=== PATIENT | male | born 1945 | race Caucasian/White ===

== ENCOUNTER 2018-02-16 09:01 | Emergency (ER) | payer OTHER ==
--- NOTE | 2018-02-16 09:51 | EDPHY ---
H & P Stated Complaint: visual disturbance last night, increased SOB [id number], malaise and fatigue Time Seen by Provider: 02/16/18 09:05 HPI/ROS: Chief Complaint: Episode of vision loss, history of atrial fibrillation HPI: 72-year-old male with a history of atrial fibrillation had an episode 12 hr ago where he lost vision in both eyes. He is describing up seeing a pattern of wrecked angles as if he were sitting inside and it glue. He was not able to see any other images during the event. They are described as light wrecked angles. Started on the periphery of his vision removed in words and then resolved after about 15-20 seconds. Over the course the next couple of hours he did see a little bit of vision in the periphery of his vision but other than that his vision has returned to normal. He has not had similar episodes in the past. He says that since waking up this morning he has been completely normal. He does have a history of atrial fibrillation but has taken himself off of the Eliquis. He has not had any for the last week or so. He did take 1 dose at 10:00 a.m. Last night and again took it at 6:00 a.m. This morning. No chest pain or shortness of breath. No lightheadedness or fainting. No nausea or vomiting. No headache. No numbness or weakness. No difficulty walking. ROS: 10 systems were reviewed and were negative except those elements noted in the HPI. PMH: Atrial fibrillation, chronic back pain Social History: No smoking, occasional alcohol, no recreational drug use Family History: non-contributory Physical Exam: Gen: Awake, Alert, No Distress HEENT: Nose: no rhinorrhea Eyes: PERRLA, EOMI Mouth: Moist mucosa Neck: Supple, no JVD Chest: nontender, lungs clear to auscultation Heart: Irregularly irregular, normal rate, no murmur Abd: Soft, non-tender, no guarding Back: no CVA tenderness, no midline tenderness Ext: no edema, non-tender Skin: no rash Neuro: CN II-XII intact, Sensation grossly intact, Strength 5/5 in bilateral upper and lower extremities - Medical/Surgical History Hx Asthma: No Hx Chronic Respiratory Disease: No Hx Diabetes: No Hx Cardiac Disease: Yes Hx Renal Disease: No Hx Cirrhosis: No Hx Alcoholism: No Hx HIV/AIDS: No Hx Splenectomy or Spleen Trauma: No Other PMH: HTN, LEFT HIP AND B KNEE REPLACEMENTS, HERNIA REPAIR, afib, psoriasis , - Social History Smoking Status: Former smoker Constitutional: Initial Vital Signs Temperature (C) 36.5 C 02/16/18 09:09 Heart Rate 99 02/16/18 09:09 Respiratory Rate 18 02/16/18 09:09 Blood Pressure 183/92 H 02/16/18 09:09 O2 Sat (%) 95 02/16/18 09:09 O2 Delivery Mode Room Air Allergies/Adverse Reactions: Penicillins Allergy (Verified 02/16/18 09:09) RASH, HIVES ON NECK AND FACE wheat Allergy (Verified 02/16/18 09:09) Rash Home Medications: Medication Instructions Recorded Acetaminophen/ASA/Caffeine 1 - 2 tab PO DAILY PRN 10/19/14 [Excedrin Tablet (*)] Ascorbic Acid [Vitamin C 500 mg 1,000 mg PO DAILY 10/19/14 (*)] Cholecalciferol (Vitamin D3) 10,000 unit PO Q2D 10/19/14 [Vitamin D3] Herbals/Supplements -Info Only 1 ea PO DAILY 10/19/14 Lisinopril/Hydrochlorothiazide 1 tab PO DAILY 10/19/14 [Zestoretic 20-25 mg Tablet] Methocarbamol [Robaxin 500 mg (*)] 500 mg PO BID PRN 10/19/14 Niacin [Niacin 500 mg (*)] 500 mg PO HS 10/19/14 Pyridoxine HCl (Vitamin B6) 50 mg PO DAILY 10/19/14 [Vitamin B-6] Acetaminophen [Tylenol 325mg (*)] 325 - 650 mg PO Q6 PRN #0 tab 11/02/14 Aspirin EC [Aspirin EC 325 mg (*)] 325 mg PO DAILY #0 tab 11/02/14 Docusate Sodium [Colace 100 MG (*)] 100 mg PO BID #0 cap 11/02/14 HYDROcodone/APAP 10/325 [Ephraim 1 - 2 tab PO Q6 PRN #0 tab 11/02/14 10/325 (*)] celeCOXIB [Celebrex (*)] 200 mg PO DAILY #0 cap 11/02/14 Medical Decision Making ED Course/Re-evaluation: I have discussed the patient with Dr. Geovanny Heard, neurology. He is recommending CT angiogram of the head neck now. CT angiogram results noted. I have discussed with Dr. Calvillo. He is recommending referral to Dr. Hector Hansen to schedule a carotid endarterectomy. I will discuss the patient with Dr. Esposito. I have discussed with Cardiology. They will arrange for an outpatient appointment. They are not requesting any changes in his care at this time. They do encourage continuing taking Eliquis as prescribed. - Data Points Laboratory Results: 02/16/18 09:37 POC Sodium 145 mEq/L mEq/L (135-145) POC Potassium 3.5 mEq/L mEq/L (3.3-5.0) POC Chloride 100.0 mEq/L mEq/L (97-110) POC Total CO2 27 mEq/L mEq/L (22-31) POC BUN 22 mg/dL mg/dL (7-23) POC Creatinine 0.9 mg/dL mg/dL (0.7-1.3) POC Glucose 153 mg/dL H mg/dL (70-100) POC Calcium 9.9 mg/dL mg/dL (8.5-10.4) Point of Care Test Results: Chemistry 02/16/18 09:37 POC Sodium 145 mEq/L mEq/L (135-145) POC Potassium 3.5 mEq/L mEq/L (3.3-5.0) POC Chloride 100.0 mEq/L mEq/L (97-110) POC Total CO2 27 mEq/L mEq/L (22-31) POC BUN 22 mg/dL mg/dL (7-23) POC Creatinine 0.9 mg/dL mg/dL (0.7-1.3) POC Glucose 153 mg/dL H mg/dL (70-100) POC Calcium 9.9 mg/dL mg/dL (8.5-10.4) Departure - Departure Disposition: Home, Routine, Self-Care Clinical Impression: Atrial fibrillation, Carotid stenosis Condition: Good Instructions: Carotid Artery Disease (DC), A-fib (Atrial Fibrillation) (ED) Additional Instructions: Please do not stop taking her Eliquis. Follow up with Dr. Hansen, general surgery for consultation for your carotid artery disease. Dr. Epsosito is office will call you to arrange an appointment with him. Return to the emergency department for worsening vision changes, numbness, weakness, fainting, chest pain, shortness of breath, or any other concerns. Referrals: Jana Heard DO [Primary Care Provider] - As per Instructions Ori Hansen MD [Medical Doctor] - As per Instructions Sai Esposito MD [Medical Doctor] - As per Instructions
[2018-02-16] MEDS ORDERED: IOPAMIDOL (ISOVUE 370) 100 ML BTL IV ONE (09:55)
[2018-02-16 11:19] VITALS: BP 162/100
--- NOTE | 2018-02-16 11:36 | CPEKG ---
Test Reason : OPEN Blood Pressure : / mmHG Vent. Rate : 091 BPM Atrial Rate : 116 BPM P-R Int : 161 ms QRS Dur : 123 ms QT Int : 426 ms P-R-T Axes : 000 005 -03 degrees QTc Int : 525 ms Atrial fibrillation Right bundle branch block Confirmed by Geovanny Leonardo ([id number]) on 02/16/2018 11:35:54 AM Referred By: Confirmed By:Geovanny Leonardo
== END 2018-02-16 11:15 | disposition home or self-care (01) ==
LOC: CED 09:01
DX: H54.7 Unspecified visual loss (principal); I48.91 Unspecified atrial fibrillation; I65.29 Occlusion and stenosis of unspecified carotid artery
CPT/HCPCS: 70450-PO; 70496-PO; 70498-PO; 80048-PO; Q9967

== ENCOUNTER 2018-03-04 06:32 | Inpatient (IN) | payer OTHER ==
[2018-03-04] MEDS ORDERED: VANCOMYCIN PHARMACY TO DOSE MISC ONE (06:43)
[2018-03-04] MEDS ORDERED: LR 1,000 ML IV ONE (06:50)
[2018-03-04] MEDS ORDERED: VANCOMYCIN 1.5 GM in NS 250 ML IV ONE (07:00)
[2018-03-04] MEDS ORDERED: THROMBIN (BOVINE) 20,000 UNIT SPRAY TP ONE ×2 (07:44→08:11)
[2018-03-04] MEDS ORDERED: PROTAMINE SULFATE 50 MG/5 ML VIAL IVP ONE (07:44)
[2018-03-04] MEDS ORDERED: BUPIVACAINE 0.5% 30 ML SDV ONE (07:44)
[2018-03-04 07:52] LABS: PLATELET COUNT 168 10^3/uL (150-400)
[2018-03-04] MEDS ORDERED: MIDAZOLAM 2 MG/2 ML VIAL IVP ONE (08:01)
--- NOTE | 2018-03-04 08:01 | PDANEPAE ---
ANE History of Present Illness recent h/o TIAs and found to have carotid disease ANE Past Medical History - Cardiovascular History Hx Hypertension: Yes Hx Arrhythmias: Yes Hx Chest Pain: No Hx Coronary Artery / Peripheral Vascular Disease: No Hx CHF / Valvular Disease: No Hx Palpitations: Yes Cardiovascular History Comment: + Atrial Fibrillation - Pulmonary History Hx COPD: No Hx Asthma/Reactive Airway Disease: No Hx Recent Upper Respiratory Infection: No Hx Oxygen in Use at Home: No Hx Sleep Apnea: Yes - Neurologic History Hx Cerebrovascular Accident: No Hx Seizures: No Hx Dementia: No - Endocrine History Hx Diabetes: No Hypothyroid: No Hyperthyroid: No Obesity: moderate - Renal History Hx Renal Disorders: No - Liver History Hx Hepatic Disorders: No - Neurological & Psychiatric Hx Hx Neurological and Psychiatric Disorders: No - Cancer History Hx Cancer: No - Congenital Disorder History Hx Congenital Disorders: No - GI History GERD: no Hx Gastrointestinal Disorders: No - Other Health History Other Health History: NEG - Chronic Pain History Chronic Pain: Yes (R HIP & BACK) - Surgical History Prior Surgeries: KNEES LALITO REPLACED. L HIP REPLACED. HERNIORRHAPHY ANE Review of Systems Review of systems is: negative Review of Systems: - Exercise capacity Exercise capacity: >=4 METS METS (RN): 3 METS ANE Patient History - Allergies Allergies/Adverse Reactions: Penicillins Allergy (Verified 02/16/18 09:09) RASH, HIVES ON NECK AND FACE wheat Allergy (Verified 02/16/18 09:09) Rash - Home Medications Home medications: home medication list seen and reviewed Home Medications: Acetaminophen/ASA/Caffeine [Excedrin Tablet (*)] 1 - 2 tab PO DAILY PRN [Last Taken 02/28/18] Ascorbic Acid [Vitamin C 500 mg (*)] 1,000 mg PO DAILY 10/19/14 [Last Taken ] Cholecalciferol (Vitamin D3) [Vitamin D3] 10,000 unit PO Q2D 10/19/14 [Last Taken 03/03/18] Herbals/Supplements -Info Only 1 ea PO DAILY 10/19/14 [Last Taken 03/03/18] Lisinopril/Hydrochlorothiazide [Zestoretic 20-25 mg Tablet] 1 tab PO DAILY 10/19 [Last Taken 03/03/18] Methocarbamol [Robaxin 500 mg (*)] 500 mg PO BID PRN 10/19/14 [Last Taken 3 Months Ago ~12/03/17] Niacin [Niacin 500 mg (*)] 500 mg PO HS 10/19/14 [Last Taken 2 Months Ago ~01/02] Pyridoxine HCl (Vitamin B6) [Vitamin B-6] 50 mg PO DAILY 10/19/14 [Last Taken 1 Day Ago ~03/03/18] Apixaban [Eliquis] 5 mg 03/04/18 [Last Taken 03/02/18] - NPO status NPO Status: no food or drink >8 hours NPO Since - Liquids (Date): 03/03/18 NPO Since - Liquids (Time): 22:30 NPO Since - Solids (Date): 03/03/18 NPO Since - Solids (Time): 21:00 - Anes Hx Anes Hx: no prior problems - Smoking Hx Smoking Status: Former smoker - Family Anes Hx Family Anes Hx: none Family Hx Anesthesia Complications: NEG ANE Labs/Vital Signs - Labs Result Diagrams: 03/04/18 07:28 - Vital Signs Vital Signs: reviewed preoperatively; see RN documention for details Blood Pressure: 160/97 Heart Rate: 84 Respiratory Rate: 14 O2 Sat (%): 93 Height: 175.26 cm Weight: 95.254 kg ANE Physical Exam - Airway Neck exam: FROM Mallampati Score: Class 3 Mouth exam: small mouth opening, cabral - Pulmonary Pulmonary: no respiratory distress - Cardiovascular Cardiovascular: irregularly irregular - ASA Status ASA Status: III ANE Anesthesia Plan Anesthesia Plan: general endotracheal anesthesia Lines/Monitors: arterial line
[2018-03-04] MEDS ORDERED: PROPOFOL 200 MG/20 ML VIAL ONE ×2 (08:05→09:36)
[2018-03-04] MEDS ORDERED: fentaNYL 250 MCG/5 ML INJ ONE (08:05)
[2018-03-04] MEDS ORDERED: ROCURONIUM 50 MG/5 ML VIAL ONE (08:05)
--- NOTE | 2018-03-04 08:05 | PDHPUP ---
History & Physical Update H&P update statement: This history and physical update is based on an assessment of the patient which was completed after admission or registration (within 24 hours), but prior to the surgery/procedure. H&P update: H&P reviewed & patient examined, no change in patient's condition since H&P completed
[2018-03-04] MEDS ORDERED: ONDANSETRON 4 MG/2 ML VIAL ONE (08:06)
[2018-03-04] MEDS ORDERED: LIDOCAINE 2% 5 ML SDV ONE (08:06)
[2018-03-04] MEDS ORDERED: DEXAMETHASONE 4 MG/ML VIAL ONE ×2 (08:06)
[2018-03-04] MEDS ORDERED: NALOXONE HCL 0.4 MG/ML INJ IVP PRN (09:10)
[2018-03-04] MEDS ORDERED: ALBUTEROL 3 ML DEYVIAL IH PRN (09:10)
[2018-03-04] MEDS ORDERED: fentaNYL 100 MCG/2 ML INJ IVP PRN (09:10)
[2018-03-04] MEDS ORDERED: ACETAMINOPHEN 500 MG TAB PO PRN (09:10)
[2018-03-04] MEDS ORDERED: HYDROmorphONE/DILAUDID 2 MG/ML INJ IVP PRN (09:10)
[2018-03-04] MEDS ORDERED: LR 500 ML IV PRN (09:10)
[2018-03-04] MEDS ORDERED: PROMETHAZINE HCL 25 MG/ML INJ IVP PRN (09:10)
[2018-03-04] MEDS ORDERED: METOCLOPRAMIDE 10 MG/2 ML VIAL IVP PRN (09:10)
[2018-03-04] MEDS ORDERED: oxyCODONE IR 5 MG TAB PO PRN (09:10)
[2018-03-04] MEDS ORDERED: MEPERIDINE 25 MG/0.5 ML AMP IVP PRN (09:10)
[2018-03-04] MEDS ORDERED: PHENYLEPHRINE HCL 100 MCG/ML SYR IVP PRN (09:10)
[2018-03-04] MEDS ORDERED: LABETALOL HCL 5 MG/ML 20 ML MDV IVP PRN (09:10)
[2018-03-04] MEDS ORDERED: DIAZEPAM 5 MG/ML 1 ML SYR IVP PRN (09:10)
[2018-03-04] MEDS ORDERED: PHENYLEPHRINE HCL 100 MCG/ML SYR ONE ×2 (09:36→10:06)
[2018-03-04] MEDS ORDERED: ePHEDrine SULFATE 25 MG/5 ML SYR ONE (09:41)
[2018-03-04] MEDS ORDERED: NEOSTIGMINE METHYLSULFATE 5 MG/5 ML SYR ONE (10:06)
[2018-03-04] MEDS ORDERED: GLYCOPYRROLATE 0.2 MG/1 ML VIAL ONE ×2 (10:06)
[2018-03-04] MEDS ORDERED: HEPARIN 10,000 UNIT/10 ML MDV (1,000 UNIT/ML) ONE (10:09)
--- NOTE | 2018-03-04 10:32 | POSTOPPROG ---
Post Op Note Date of Operation: 03/04/18 Surgeon: Ori Hansen Photography Spotter: Cassie Anesthesiologist: Paxton Anesthesia: GET(General Endotracheal) Pre-op Diagnosis: Left carotid stenosis Post-op Diagnosis: same Indication: same Procedure: L CEA with EEG monitoring Findings: Poor backflow, L sided EEG changes, neuro exam intact upon waking up Inf/Abcess present in the surg proc area at time of surgery?: No Depth: Deep Incisional (Fascial) EBL: 50-100 Specimen(s): Left carotid plaque Left carotid LN
[2018-03-04] MEDS ORDERED: HYDROmorphONE/DILAUDID 1 MG/ML INJ IVP PRN (10:33)
[2018-03-04] MEDS ORDERED: ONDANSETRON DISINTEGRATING 4 MG TAB PO PRN (10:36)
[2018-03-04] MEDS: ACETAMINOPHEN 325 MG TAB PO PRN ×2 (12:12→19:42)
--- NOTE | 2018-03-04 12:14 | POSTANESTH ---
Post Anesthetic Evaluation Cardiovascular Status: Normal, Stable Respiratory Status: Normal, Stable Level of Consciousness/Mental Status: Can Participate in Eval Pain Control: Adequate, Prn Tx Ordered Nausea/Vomiting Control: Adequate, Prn Tx Ordered Complications Possibly Related to Anesthesia: None Noted
--- NOTE | 2018-03-04 14:08 | PDMN ---
Medical Necessity Medical necessity: Pt meets inpt criteria per MD order and [facility] S-300, Carotid Endarterectomy, Medicare inpt only list.
[2018-03-04] MEDS: CEPACOL LOZENGE PO PRN (16:20)
[2018-03-04] MEDS: ASPIRIN 81 MG CHEWABLE TAB PO SCH (22:52)
[2018-03-04] MEDS: oxyCODONE IR 5 MG TAB PO PRN (23:43)
--- NOTE | 2018-03-05 07:11 | GOP ---
DATE OF OPERATION: 03/04/2018 SURGEON: Ori Hansen MD CNC APPLICATIONS ENGINEER: Jeaneth Matthews NP. PREOPERATIVE DIAGNOSIS: Transient ischemic attack and critical left carotid stenosis. POSTOPERATIVE DIAGNOSIS: Transient ischemic attack and critical left carotid stenosis. PROCEDURE PERFORMED: Left carotid endarterectomy with electroencephalogram monitoring. FINDINGS: The patient was found to have a 75% to 80% stenosis of his left internal carotid artery, a pproximately 1.5 cm above the bifurcation. He did demonstrate some EEG wave suppression with crosscl amping his carotid, which resolved with shunt placement, and he awoke neurologically intact. DESCRIPTION OF PROCEDURE: The patient was taken to the operating room where he received satisfactory general endotracheal anesthesia. He was systemically heparinized prior to induction of anesthesia. He had an art line and EEG monitoring. He was placed in the supine position with the left neck rota morgan slightly to the right and extended, prepped and draped in the usual sterile fashion. An incision was made along the anterior border of the sternocleidomastoid muscle, carried down through the platy sma and the cervical fascia. The sternocleidomastoid muscles were retracted laterally, exposing the jugular vein and the carotid arterial tree. The facial vein was multiply ligated and divided. The c arotid was then dissected free. The bifurcation was quite high. The ansa cervicalis was sacrificed to provide exposure to the carotid bifurcation. The hypoglossal nerve was well identified and slight ly retracted away. The common carotid, internal carotid, external carotid, and the superior thyroid artery were all encircled with vessel loops for proximal and distal control. After adequate control was achieved, the patient was given additional heparin. After adequate circulation time, the vessels were occluded with the vessel loops. An arteriotomy was made in the common carotid artery and exten ded up through the plaque and particularly up through the very tight plaque in the internal carotid a rtery. There was pulsatile backflow from the internal carotid, but it was marginal. An expeditious endarterectomy was done, but it was elected to place a shunt. At the time the decision was made to p lace a shunt, there was also some EEG suppression on the left. The shunt was quickly put in place an d controlled with Boom shunt clamps, and the EEG changes improved. The endarterectomy was completed . A good feathered end was achieved. All debris was flushed out and removed from the arterial wall. A Dacron patch was placed over the arteriotomy and sutured in place with a running Hemashield 7 sut ure. Just before completion of the arteriotomy, the shunt was crossclamped and removed. All vessels were flushed. The patch closure was completed. Flow was first established through the external car otid artery and then through the internal carotid artery. There were no major changes. Suture line appeared to be mostly hemostatic. One single suture was placed at one leakage point. Heparin was re versed with protamine. The wound was sprayed with some topical thrombin and irrigated. Hemostasis w as assured, and the wound was closed in layers using 3-0 Vicryl for the cervical fascia, 3-0 Vicryl f or the platysma and subcutaneous tissue, and 4-0 Monocryl subcuticular stitch for the skin. The woun d was infiltrated with 0.5% Marcaine. He tolerated the procedure amazingly well. He was taken to [facility] recovery room in satisfactory condition after waking neurologically intact. /[id number]/MODL
[2018-03-05] MEDS ORDERED: ACETAMINOPHEN/ASA/CAFFEINE 1 EACH TAB PO PRN (07:18)
[2018-03-05] MEDS ORDERED: POLYETHYLENE GLYCOL 3350 17 GM PKT PO PRN (07:58)
[2018-03-05] MEDS ORDERED: LACTULOSE 20 GM/30 ML UDCUP PO PRN (07:58)
[2018-03-05] MEDS ORDERED: BISACODYL 10 MG SUPP PR PRN (07:58)
[2018-03-05] MEDS ORDERED: MAGNESIUM HYDROXIDE 30 ML UDCUP PO PRN (07:58)
[2018-03-05] MEDS: CEPACOL LOZENGE PO PRN (08:29)
[2018-03-05] MEDS: oxyCODONE IR 5 MG TAB PO PRN (08:33)
[2018-03-05] MEDS ORDERED: ASCORBIC ACID 500 MG TAB PO SCH (09:00)
[2018-03-05] MEDS ORDERED: APIXABAN 5 MG TAB PO SCH (09:00)
[2018-03-05] MEDS ORDERED: SENNOSIDES/DOCUSATE SODIUM TAB PO SCH (09:00)
[2018-03-05] MEDS ORDERED: LISINOPRIL/HCTZ 10/12.5 MG 1 EA TAB PO SCH (09:00)
[2018-03-05] MEDS ORDERED: ASPIRIN EC 325 MG TAB PO SCH (09:00)
[2018-03-05] MEDS ORDERED: CHOLECALCIFEROL 10000 UNIT PO SCH (09:00)
[2018-03-05] MEDS ORDERED: Herbals/Supplements -Info Only PO SCH (09:00)
[2018-03-05] MEDS: ASPIRIN 81 MG CHEWABLE TAB PO SCH (09:20)
--- NOTE | 2018-03-05 09:54 | SOAPPROG ---
SOAP Progress Note Assessment/Plan: Assessment: 73 y/o M s/p L CEA for carotid stenosis POD #1 S: Pain controlled. Eager to be discharged. Endorses mild sore throat and difficulty swallowing, likely from ET tube. O: Alert Afebrile VSS Neck: incision cdi, no surrounding erythema, warmth, or induration No increased WOB CN 2-12 grossly intact Plan: Dispo home today. Continue aspirin. Restart eliquis tomorrow. Follow up in 7-10 days. 03/05/18 09:51 Objective: Vital Signs Temp Pulse Resp BP Pulse Ox 36.6 C 75 20 104/58 L 95 03/05/18 00:00 03/05/18 08:00 03/05/18 08:00 03/05/18 08:00 03/05/18 08:00 Laboratory Results 03/04/18 07:28 03/04/18 03/05/18 03/06/18 05:59 05:59 05:59 Intake Total 4500 Output Total 3200 600 Balance 1300 -600 ICD10 Worksheet Patient Problems: Problems Problem Status Onset Osteoarthritis of hip Acute
[2018-03-05 11:10] VITALS: BP 123/73
[2018-03-05] MEDS ORDERED: NIACIN 500 MG TAB PO SCH (21:00)
== END 2018-03-05 12:00 | disposition home or self-care (01) | DRG 39 ==
LOC: F3E 06:32 → F2N 10:22
PROVIDERS: ADMIT Surgery; ATTEND Surgery
DX: I65.22 Occlusion and stenosis of left carotid artery (principal); I25.10 Atherosclerotic heart disease of native coronary artery without angina pectoris; I10 Essential (primary) hypertension; E78.5 Hyperlipidemia, unspecified; I48.91 Unspecified atrial fibrillation; Z96.642 Presence of left artificial hip joint; Z96.653 Presence of artificial knee joint, bilateral
CPT/HCPCS: C1768; J1100; J1644; J2370; J2405; J2704; J2710; J2720; J3010; J3370